=== PATIENT | female | born 1985 | race Caucasian/White ===

== ENCOUNTER 2022-08-22 11:23 | Emergency (ER) | payer MEDICAID ==
[~2022-08-22] VITALS: Ht 167.6 cm; Wt 139.3 kg
[2022-08-22 11:24] VITALS: BP 124/67
--- NOTE | 2022-08-22 11:30 | NUR ---
BIBA ALS TO [facility]
--- NOTE | 2022-08-22 11:59 | NUR ---
DR CASTREJON EVALUATING PT
[2022-08-22 13:02] LABS: BASOPHILS % (AUTO) 0.5 % (0.0-2.0); EOSINOPHILS # (AUTO) 0.1 K/uL (0-0.4); EOSINOPHILS % (AUTO) 1.4 % (0.0-4.0); HEMATOCRIT 26.9 % (36-48); HEMOGLOBIN 8.8 g/dL (12.0-16.0); LYMPHOCYTES # (AUTO) 2.2 K/uL (2.5-16.5); LYMPHOCYTES % (AUTO) 31.4 % (20.5-51.1); MEAN CORPUSCULAR HEMOGLOBIN 29 pg (27-31); MEAN CORPUSCULAR HGB CONC 33 g/dL (33-37); MEAN CORPUSCULAR VOLUME 89.4 fL (80-94); MONOCYTES # (AUTO) 0.3 K/uL (0.8-1.0); MONOCYTES % (AUTO) 4.2 % (1.7-9.3); NEUTROPHILS # (AUTO) 4.3 K/uL (1.8-7.7); NEUTROPHILS % (AUTO) 62.5 % (42.2-75.2); PLATELET COUNT (AUTO) 162 K/uL (140-450); RED BLOOD CELL COUNT(AUTO) 3.01 MIL/uL (4.20-5.40); RED CELL DISTRIBUTION WIDTH 16.1 % (11.6-13.7); WHITE BLOOD COUNT (AUTO) 6.9 K/uL (4.8-10.8)
[2022-08-22 13:23] LABS: APPEARANCE,URINE CLEAR (CLEAR); BILIRUBIN,URINE NEGATIVE (NEGATIVE); BLOOD, URINE 3+ (NEGATIVE); COLOR,URINE DARK YELLOW (YELLOW); LEUKOCYTE ESTERASE ,URINE 1+ (NEGATIVE); NITRITE, URINE NEGATIVE (NEGATIVE); UGLUCOSE NEGATIVE (NEGATIVE)
[2022-08-22 13:37] LABS: RBC,URINE 0-5 /HPF (0-5); WBC,URINE 0-5 /HPF (0-5)
--- NOTE | 2022-08-22 13:39 | NUR ---
PT SITTING IN CHAIR AT THIS TIME, EVEN AND UNLABORED RESPIRATIONS NOTED. NO SIGNS OF DISTRESS. AWAITING RESULTS
[2022-08-22] MEDS ORDERED: ACET-8386 PO (14:57)
[2022-08-22] MEDS ORDERED: PROM6.2590 PO (14:57)
[2022-08-22] MEDS ORDERED: NAPR-1704 PO (14:57)
[2022-08-22] MEDS ORDERED: CYT100 PO (14:57)
[2022-08-22 15:05] VITALS: BP 121/74
--- NOTE | 2022-08-22 15:05 | NUR ---
Patient discharged with v/s stable. Written and verbal after care instructions ABOUT MISCARRIAGE AND ACUTE BRONCHITIS given and explained. Patient alert, oriented and verbalized understanding of instructions. Ambulatory with steady gait. All questions addressed prior to discharge. ID band removed. Patient advised to follow up with PMD. Rx of NORCO 5-325MG, CYTOTEC, NAPROXEN, AND PROMETHAZINE given. Patient educated on indication of medication including possible reaction and side effects. Opportunity to ask questions provided and answered.
== END 2022-08-22 15:05 | disposition home or self-care (01) ==
LOC: MED 11:23
DX: O46.92 Antepartum hemorrhage, unspecified, second trimester (principal); J40 Bronchitis, not specified as acute or chronic; D64.9 Anemia, unspecified; Z3A.14 14 weeks gestation of pregnancy
CPT/HCPCS: 36415; 71045; 76817; 81001; 84702; 85025; 86900; 86901; 87086; 99285; Q0092